=== PATIENT | male | born 1995 | race Caucasian/White ===

== ENCOUNTER 2019-12-14 21:26 | Emergency (ER) | payer BC, MEDICAID ==
[~2019-12-14] VITALS: Ht 182.9 cm; Wt 88.0 kg
[~2019-12-14 21:26] MED LIST: PANT-47 PO
[2019-12-14 21:33] VITALS: BP 154/94
[2019-12-14] MEDS ORDERED: ibuprofen tablet 400 MG TABLET PO ONE (23:40)
== END 2019-12-15 00:09 | disposition home or self-care (01) ==
LOC: ER 21:26
DX: M25.532 Pain in left wrist (principal); F12.90 Cannabis use, unspecified, uncomplicated; Z72.89 Other problems related to lifestyle; Z79.899 Other long term (current) drug therapy
CPT/HCPCS: 29125; 73110; 99283

== ENCOUNTER 2020-06-09 11:46 | Emergency (ER) | payer MEDICAID ==
[~2020-06-09] VITALS: Ht 185.4 cm; Wt 70.0 kg
[2020-06-09 12:25] VITALS: BP 135/82
== END 2020-06-09 14:25 | disposition home or self-care (01) ==
LOC: ER 11:46
DX: S93.491A Sprain of other ligament of right ankle, initial encounter (principal); F12.90 Cannabis use, unspecified, uncomplicated; Z72.89 Other problems related to lifestyle; Z98.890 Other specified postprocedural states; X58.XXXA Exposure to other specified factors, initial encounter; Y93.89 Activity, other specified; Y92.89 Other specified places as the place of occurrence of the external cause; Y99.8 Other external cause status
CPT/HCPCS: 29515; 73610; 99284

== ENCOUNTER 2022-11-11 20:59 | Emergency (ER) | payer MEDICAID ==
[~2022-11-11] VITALS: Ht 182.9 cm; Wt 71.8 kg
[2022-11-11 21:21] VITALS: BP 145/83
== END 2022-11-12 01:26 | disposition left against medical advice (07) ==
LOC: ER 21:00
DX: M79.602 Pain in left arm (principal); Z53.21 Procedure and treatment not carried out due to patient leaving prior to being seen by health care provider
CPT/HCPCS: 73130

== ENCOUNTER 2022-11-12 10:45 | Emergency (ER) | payer MEDICAID ==
[~2022-11-12] VITALS: Ht 182.9 cm; Wt 71.8 kg
[2022-11-12 11:23] VITALS: BP 134/88
[2022-11-12] MEDS ORDERED: ketorolac trometh inj. 60 MG/2 ML VIAL IM ONE (13:05)
[2022-11-12] MEDS ORDERED: ketorolac trometh. 30mg/ml inj. IM ONE (13:05)
== END 2022-11-12 13:29 | disposition home or self-care (01) ==
LOC: ER 10:46
DX: S60.222A Contusion of left hand, initial encounter (principal); F12.90 Cannabis use, unspecified, uncomplicated; Z72.89 Other problems related to lifestyle; Z79.899 Other long term (current) drug therapy; W23.0XXA Caught, crushed, jammed, or pinched between moving objects, initial encounter; Y93.89 Activity, other specified; Y92.89 Other specified places as the place of occurrence of the external cause; Y99.8 Other external cause status
CPT/HCPCS: 96372; 99283; J1885

== ENCOUNTER 2023-04-13 17:32 | Emergency (ER) | payer MEDICAID ==
[~2023-04-13] VITALS: Ht 182.9 cm; Wt 50.0 kg
[2023-04-13 17:42] VITALS: BP 128/86
[2023-04-13] MEDS ORDERED: ibuprofen tablet 400 MG TABLET PO ONE (18:20)
== END 2023-04-13 18:41 | disposition home or self-care (01) ==
LOC: ER 17:32
DX: S63.612A Unspecified sprain of right middle finger, initial encounter (principal); S63.614A Unspecified sprain of right ring finger, initial encounter; S63.616A Unspecified sprain of right little finger, initial encounter; F12.90 Cannabis use, unspecified, uncomplicated; Z72.89 Other problems related to lifestyle; Z79.899 Other long term (current) drug therapy; X50.1XXA Overexertion from prolonged static or awkward postures, initial encounter; Y93.54 Activity, bowling; Y92.89 Other specified places as the place of occurrence of the external cause; Y99.8 Other external cause status
CPT/HCPCS: 73130; 73140; 99284

== ENCOUNTER 2023-10-11 16:31 | Emergency (ER) | payer MEDICAID ==
[~2023-10-11] VITALS: Ht 182.9 cm; Wt 82.4 kg
[2023-10-11 16:33] VITALS: BP 175/100; PULSE 88; RESP 16; TEMP 98.3; O2SAT 99
[2023-10-11 17:10] LABS: BASOPHILS # (AUTO) 0.1 X10'3 (0-0.2); BASOPHILS % (AUTO) 0.8 % (0-1); EOSINOPHILS # (AUTO) 0.2 X10'3 (0-0.9); EOSINOPHILS % (AUTO) 1.8 % (0-6); HEMATOCRIT 45.5 % (42.0-52.0); HEMOGLOBIN 15.4 g/dl (14.0-17.9); LYMPHOCYTES # (AUTO) 2.6 X10'3 (1.1-4.8); LYMPHOCYTES % (AUTO) 28.9 % (21-51); MEAN CORPUSCULAR HGB CONC 33.9 g/dL (33.0-36.5); MEAN CORPUSCULAR VOLUME 91.5 FL (78-98); MEAN PLATELET VOLUME 8.1 FL (7.4-10.4); MONOCYTES # (AUTO) 0.5 X10'3 (0-0.9); MONOCYTES % (AUTO) 5.6 % (2-12); NEUTROPHILS # (AUTO) 5.6 X10'3 (1.8-7.7); NEUTROPHILS % (AUTO) 62.9 % (42-75); PLATELET COUNT 249 X10'3 (140-440); RED BLOOD COUNT 4.97 X10'6 (4.70-6.10); RED CELL DISTRIBUTION WIDTH 13.2 % (11.5-14.5); WHITE BLOOD COUNT 8.9 X10'3 (4.5-11.0)
[2023-10-11 17:38] LABS: ALANINE AMINOTRANSFERASE 84 U/L (12-78); ALBUMIN 4.5 G/DL (3.4-5.0); ALKALINE PHOSPHATASE 80 IU/L (46-116); ANION GAP 10 (8-16); ASPARTATE AMINO TRANSFERASE 52 U/L (10-37); BILIRUBIN,TOTAL 1.2 MG/DL (0.1-1.0); BLOOD UREA NITROGEN 10 MG/DL (7-18); BUN/CREATININE RATIO 12.2 (10.0-20.0); CALCIUM 9.5 MG/DL (8.5-10.1); CHLORIDE 100 MMOL/L (99-107); CREATININE 0.82 MG/DL (0.60-1.10); GLUCOSE 102 MG/DL (70-104); LIPASE 15 U/L (16-77); POTASSIUM 3.8 MMOL/L (3.5-5.1); SODIUM 137 MMOL/L (135-145); TOTAL CARBON DIOXIDE 27.2 MMOL/L (24-32); TOTAL PROTEIN 8.8 G/DL (6.4-8.2); eCRCL 149 ML/MIN; eGFR > 90 ML/MIN
[2023-10-11] MEDS ORDERED: ONDA8TAB13 PO (17:56)
== END 2023-10-11 18:02 | disposition home or self-care (01) ==
LOC: ER 16:31
DX: R11.2 Nausea with vomiting, unspecified (principal); R19.7 Diarrhea, unspecified; R10.32 Left lower quadrant pain; F12.90 Cannabis use, unspecified, uncomplicated; Z72.89 Other problems related to lifestyle; Z79.899 Other long term (current) drug therapy
CPT/HCPCS: 36415; 74176; 80053; 83690; 85025; 99284

== ENCOUNTER 2023-12-06 14:06 | Emergency (ER) | payer OTHER, MEDICAID ==
[~2023-12-06] VITALS: Ht 182.9 cm; Wt 77.3 kg
[~2023-12-06 14:06] MED LIST changes: +ONDA8TAB13 PO
[2023-12-06] MEDS ORDERED: ACET-3209 PO (14:38)
[2023-12-06] MEDS ORDERED: ONDA4TAB12 PO (14:38)
[2023-12-06 14:50] VITALS: BP 168/97; PULSE 82; RESP 16; TEMP 97.4; O2SAT 98
== END 2023-12-06 14:53 | disposition home or self-care (01) ==
LOC: ER 14:07
DX: S06.0X0A Concussion without loss of consciousness, initial encounter (principal); F12.90 Cannabis use, unspecified, uncomplicated; Z79.899 Other long term (current) drug therapy; X58.XXXA Exposure to other specified factors, initial encounter; Y93.89 Activity, other specified; Y92.89 Other specified places as the place of occurrence of the external cause; Y99.8 Other external cause status
CPT/HCPCS: 99283

== ENCOUNTER 2025-01-25 14:49 | Emergency (ER) | payer MEDICAID, OTHER ==
[~2025-01-25] VITALS: Ht 182.9 cm; Wt 88.0 kg
[~2025-01-25 14:49] MED LIST changes: +ONDA-243 PO; +ONDA-245 PO; -ONDA8TAB13 PO
[2025-01-25 15:15] VITALS: TEMP 98
[2025-01-25 15:52] LABS: BILIRUBIN,URINE NEGATIVE (Neg); CLARITY,URINE CLEAR (Clear); COLOR,URINE STRAW (Yellow); GLUCOSE, URINE NEGATIVE (Neg); KETONES,URINE 15 mg/dl (Neg); LEUKOCYTE ESTERASE ,URINE NEGATIVE (Neg); NITRITES, URINE NEGATIVE (Neg); OCCULT BLOOD,URINE NEGATIVE (Neg); PROTEIN,URINE NEGATIVE (Neg); UROBILINOGEN,URINE 0.2 E.U/dL (0.2-1.0)
[2025-01-25 15:53] LABS: UA COLLECTION TYPE CLN CATCH MIDSTREAM
[2025-01-25 15:54] LABS: BASOPHILS % (AUTO) 0.3 % (0-1); EOSINOPHILS % (AUTO) 0.1 % (0-6); HEMATOCRIT 42.3 % (42.0-52.0); HEMOGLOBIN 14.2 g/dl (14.0-17.9); LYMPHOCYTES # (AUTO) 1.6 X10'3 (1.1-4.8); LYMPHOCYTES % (AUTO) 12.4 % (21-51); MEAN CORPUSCULAR HGB CONC 33.5 g/dL (33.0-36.5); MEAN CORPUSCULAR VOLUME 92.7 FL (78-98); MEAN PLATELET VOLUME 7.8 FL (7.4-10.4); MONOCYTES % (AUTO) 7.6 % (2-12); NEUTROPHILS # (AUTO) 10.1 X10'3 (1.8-7.7); NEUTROPHILS % (AUTO) 79.6 % (42-75); PLATELET COUNT 228 X10'3 (140-440); RED BLOOD COUNT 4.56 X10'6 (4.70-6.10); RED CELL DISTRIBUTION WIDTH 12.8 % (11.5-14.5); WHITE BLOOD COUNT 12.7 X10'3 (4.5-11.0)
[2025-01-25 16:09] LABS: ALANINE AMINOTRANSFERASE 106 U/L (12-78); ALBUMIN 4.5 G/DL (3.4-5.0); ALBUMIN/GLOBULIN RATIO 1.3 (1.1-1.5); ALKALINE PHOSPHATASE 87 IU/L (46-116); ANION GAP 13 (8-16); ASPARTATE AMINO TRANSFERASE 99 U/L (10-37); BILIRUBIN,TOTAL 1.4 MG/DL (0.1-1.0); BLOOD UREA NITROGEN 5 MG/DL (7-18); BUN/CREATININE RATIO 6.4 (10.0-20.0); CALCIUM 9.8 MG/DL (8.5-10.1); CHLORIDE 99 MMOL/L (99-107); CREATININE 0.78 MG/DL (0.60-1.10); GLUCOSE 81 MG/DL (70-104); POTASSIUM 3.7 MMOL/L (3.5-5.1); SODIUM 138 MMOL/L (135-145); TOTAL CARBON DIOXIDE 25.7 MMOL/L (24-32); TOTAL PROTEIN 7.9 G/DL (6.4-8.2); eCRCL 155 ML/MIN; eGFR > 90 ML/MIN
[2025-01-25 16:10] LABS: CREATINE KINASE 427 U/L (39-308)
[2025-01-25 16:23] LABS: URINE AMPHETAMINE SCREEN NEGATIVE (Neg); URINE BARBITUATE SCREEN NEGATIVE (Neg); URINE BENZODIAZEPINES SCREEN NEGATIVE (Neg); URINE CANNABINOID SCREEN POSITIVE (Neg); URINE COCAINE SCREEN NEGATIVE (Neg); URINE METHADONE SCREEN NEGATIVE (Neg); URINE OPIATE SCREEN NEGATIVE (Neg); URINE PHENCYCLIDINE SCREEN NEGATIVE (Neg)
[2025-01-25 17:02] VITALS: BP 148/92; PULSE 94; RESP 16; O2SAT 99
== END 2025-01-25 17:23 | disposition home or self-care (01) ==
LOC: ER 14:49
DX: R55 Syncope and collapse (principal); R56.9 Unspecified convulsions; Z79.899 Other long term (current) drug therapy; F12.90 Cannabis use, unspecified, uncomplicated; Z72.89 Other problems related to lifestyle
CPT/HCPCS: 36415; 70450; 80053; 80305; 81003; 82550; 85025; 93005; 99284

== ENCOUNTER 2025-06-09 22:56 | Emergency (ER) | payer MEDICAID ==
[~2025-06-09] VITALS: Ht 182.9 cm; Wt 84.7 kg
[2025-06-09 23:31] LABS: MEAN PLATELET VOLUME 7.0 FL (7.4-10.4); RED CELL DISTRIBUTION WIDTH 13.2 % (11.5-14.5)
--- NOTE | 2025-06-09 23:31 | Physician Documentation ---
History of Present Illness ~ Chief Complaint: Suicidal Ideation Stated Complaint: RIGHT ARM LAC Time Seen by MD: 23:14 OK to notify your PCP?: Yes Primary Medical Doctor: DR BRIDGET PATEL Source: patient, RN/ HPI Patient is seen today with complaints of suicide attempt by cutting the volar aspect of his right forearm midshaft with a razor blade, causing a 3.5 cm laceration.. Patient states this happened just prior to arrival. Patient states he does still feel suicidal but is feeling a little better. He denies any chest pain or shortness of breath or abdominal pain or nausea, vomiting, diarrhea. Patient has no other concern or complaint at this time. Medication Reconciliation Allergies: Coded Allergies: No Known Allergies (Unverified , 12/06/23) Scheduled Ondansetron 8mg ODT (Ondansetron Odt), 1 TAB PO Q6H Pantoprazole Sodium (PROTONIX tablet), 1 TABLET PO DAILY Scheduled PRN ONDANSETRON ODT 4mg tablet (Ondansetron Odt), 1 TAB PO Q6H PRN PRN for kee sea/vomiting Past Medical History Past Medical History: No Pertinent History Past Surgical History: no surgical history Alcohol Use: Occasionally Drug Use: marijuana Lives In: Home Review of Systems Constitutional: Denies: chills, fever, weakness Eyes: Denies: pain, blurred vision ENT: Denies: ear pain, nose pain, throat pain, mouth pain Respiratory: Denies: cough, shortness of breath Cardiovascular: Denies: chest pain, palpitations Gastrointestinal: Denies: abdominal pain, nausea, vomiting Genitourinary: Denies: burning, dysuria Male Genitalia: Denies: penile discharge, testicular pain Neurological: Denies: headache, dizziness Musculoskeletal: Denies: pain, swelling Integumentary: Denies: rash, lesions Allergic/Immunologic: Denies: hives, itching Hematologic/Lymphatic: Denies: no symptoms reported Psychiatric: Denies: depression, anxiety Physical Exam Vital Signs: Temperature: 98.8, Source: Oral, Heart Rate: 92, Respiratory Rate: 16, BP: 150/99, Pulse Oximetry: 95, Weight: 84.700 Oxygen Flow Rate: 0 Physical Exam General: Awake and Alert, no acute distress. HEENT: Conjunctiva pink, Sclera clear, Mucus Membranes moist. Neck: Supple without masses and tenderness. Resp: Unlabored. Lungs clear to auscultation bilaterally. Heart: Regular Rate and rhythm, normal S1 and S2 without murmur, rub or gallop. Abdomen: Soft and non tender no organomegaly Extremities: No cyanosis,clubbing or edema. Skin: Patient on exam has 3.5 cm laceration of the volar aspect of the right forearm midshaft. There is minimal active bleeding. Procedures Laceration : Procedure Note Procedure note: 4 cc of 1% lidocaine without epinephrine was used to achieve local anesthesia of the 3-1/2 cm laceration to the volar aspect of the right forearm. Patient tolerated well. Wound was irrigated with normal saline and iodine. 5-0 Prolene suture using running suture was used to achieve closure. Patient tolerated well. Progress Results/Orders Results/Orders Orders - YENNIFER PEPPER PAC Urinalysis (06/09/25 23:13) Drug Screen, Urine (06/09/25 23:13) Med Rec (06/09/25 23:13) 1799.11 (06/09/25 23:13) Close Observation Level (06/09/25 23:13) Covid19 Binax Poc Result Entry (06/09/25 23:13) Substance Use Navigator (06/09/25 23:13) Regular Diet (06/10/25 Breakfast) Completed Orders - YENNIFER PEPPER PAC Cbc/Diff (06/09/25 23:13) Ethanol (06/09/25 23:13) TSH (06/09/25 23:13) BMP (06/09/25 23:13) Vital Signs 06/09/25 23:00 Temp 98.8 Pulse 92 Resp 16 B/P (MAP) 150/99 Pulse Ox 95 O2 Flow Rate 0 Laboratory Tests Test 06/09/25 23:20 White Blood Count 9.0 Red Blood Count 4.74 Hemoglobin 14.9 Hematocrit 43.6 Mean Corpuscular Volume 92.0 Mean Corpuscular Hemoglobin 31.5 H Mean Corpuscular Hemoglobin Concent 34.2 Red Cell Distribution Width 13.2 Platelet Count 268 Mean Platelet Volume 7.0 L Neutrophils (%) (Auto) 47.8 Lymphocytes (%) (Auto) 44.7 Monocytes (%) (Auto) 6.0 Eosinophils (%) (Auto) 0.9 Basophils (%) (Auto) 0.6 Neutrophils # (Auto) 4.3 Lymphocytes # (Auto) 4.0 Monocytes # (Auto) 0.5 Eosinophils # (Auto) 0.1 Basophils # (Auto) 0.1 CBC Comment Sodium Level 142 Potassium Level 3.5 Chloride Level 103 Carbon Dioxide Level 26.0 Anion Gap 13 Blood Urea Nitrogen 6 L Creatinine 0.77 Estimated GFR/1.73 m2 > 90 BUN/Creatinine Ratio 7.8 L Glucose Level 103 Calcium Level 8.5 Albumin 4.1 Thyroid Stimulating Hormone (TSH) 2.38 Chemistry Comments Ethyl Alcohol Level 376 H Medical Decision Making Findings Patient is seen today with complaints of suicide attempt by cutting the volar aspect of his right forearm midshaft with a razor blade, causing a 3.5 cm laceration.. Patient states this happened just prior to arrival. Patient states he does still feel suicidal but is feeling a little better. He denies any chest pain or shortness of breath or abdominal pain or nausea, vomiting, diarrhea. Patient has no other concern or complaint at this time. Patient did have laceration repaired via sutures by myself today. Patient tolerated well. Patient is medically cleared for psychiatric evaluation. Departure Disposition: 30 STILL A PATIENT Impression: Primary Impression: Suicide attempt Additional Impression: Laceration Condition: Improved Discharge Instructions: Suicidal Feelings: How to Help Yourself Additional Instructions: Transfer orders for [facility]: At this time there is no evidence of an emergent medical condition that would preclude (admission/transfer) to a psychiatric unit via [facility] protocol for further psychiatric, as well as medical evaluation and treatment. At this time I have no reason to believe that transfer via [facility] protocol would have serious medical compromise in the patient's health. Patient did have laceration repaired via sutures by myself today. Patient tolerated well. Patient is medically cleared for psychiatric evaluation. Referrals: NO PRIMARY CARE PROVIDER (PCP) Signature Scribe Signature: No scribe Attestation: No scribe YENNIFER PEPPER PAC Jun 09, 2025 23:31
[2025-06-09 23:57] LABS: CREATININE 0.77 MG/DL (0.60-1.10); ETHANOL 376 MG/DL (<10); TOTAL CARBON DIOXIDE 26.0 MMOL/L (24-32); eCRCL 155 ML/MIN; eGFR > 90 ML/MIN
[2025-06-10] MEDS ORDERED: NO HOME MEDS (00:14)
[2025-06-10 00:29] VITALS: BP 142/96; PULSE 63; TEMP 98.8; O2SAT 96
[2025-06-10 02:08] LABS: LEUKOCYTE ESTERASE ,URINE NEGATIVE (Neg); NITRITES, URINE NEGATIVE (Neg); OCCULT BLOOD,URINE NEGATIVE (Neg)
[2025-06-10 02:12] LABS: UA COLLECTION TYPE CLN CATCH MIDSTREAM
[2025-06-10 02:24] LABS: URINE AMPHETAMINE SCREEN NEGATIVE (Neg); URINE BARBITUATE SCREEN NEGATIVE (Neg); URINE BENZODIAZEPINES SCREEN NEGATIVE (Neg); URINE CANNABINOID SCREEN POSITIVE (Neg); URINE COCAINE SCREEN NEGATIVE (Neg); URINE METHADONE SCREEN NEGATIVE (Neg); URINE OPIATE SCREEN NEGATIVE (Neg); URINE PHENCYCLIDINE SCREEN NEGATIVE (Neg)
[2025-06-10 09:30] VITALS: RESP 12
[2025-06-10] MEDS: nicotine 14mg patch - 24hr TD ONE (10:49)
--- NOTE | 2025-06-10 13:38 | Physician Documentation ---
History of Present Illness ~ Chief Complaint: Suicidal Ideation Stated Complaint: RIGHT ARM LAC Primary Medical Doctor: DR BRIDGET PATEL Source: patient, RN/MD Mode of Arrival: POV HPI New chart opened for purposes of writing d/c instructions as initial chart note was signed fully by previous provider. Medication Reconciliation Allergies: Coded Allergies: No Known Allergies (Unverified , 12/06/23) Miscellaneous Medications Home Med List (No Home Medications), (Reported) Discontinued Medications ONDANSETRON ODT 4mg tablet (Ondansetron Odt), 1 TAB PO Q6H PRN PRN for nausea/vomiting Discontinued Reason: patient no longer taking Ondansetron 8mg ODT (Ondansetron Odt), 1 TAB PO Q6H Discontinued Reason: patient no longer taking Pantoprazole Sodium (PROTONIX tablet), 1 TABLET PO DAILY Discontinued Reason: patient no longer taking Past Medical History Past Medical History: No Pertinent History Past Surgical History: no surgical history Alcohol Use: Occasionally Drug Use: marijuana Lives In: Home Review of Systems ROS not obtained, this chart note for just for purposes of writing d/c instructions. Physical Exam Vital Signs: Temperature: 98.8, Source: Oral, Heart Rate: 63, Respiratory Rate: 12, BP: 142/96, Pulse Oximetry: 96, Weight: 84.700 Oxygen Flow Rate: 0 Physical Exam No physical exam. Cleared for discharge by mental health clinician, who reports patient was found to have no suicidal ideation. Progress Results/Orders Results/Orders Medications Received in ER Medications (Trade) Dose Ordered Sig/Sharon Route PRN Reason Start Time Stop Time Status Last Admin Dose Admin (Habitrol patch) 1 patch ONCE ONCE TD 06/10/25 10:35 06/10/25 10:36 DC 06/10/25 10:49 1 PATCH Vital Signs 06/09/25 06/10/25 06/10/25 06/10/25 23:00 00:07 00:29 00:38 Temp 98.8 98.8 Pulse 92 63 Resp 16 16 18 19 B/P (MAP) 150/99 142/96 (111) Pulse Ox 95 96 O2 Flow Rate 0 0 06/10/25 09:30 Resp 12 B/P (MAP) Laboratory Tests Test 06/09/25 23:20 06/09/25 23:58 06/10/25 01:40 White Blood Count 9.0 Red Blood Count 4.74 Hemoglobin 14.9 Hematocrit 43.6 Mean Corpuscular Volume 92.0 Mean Corpuscular Hemoglobin 31.5 H Mean Corpuscular Hemoglobin Concent 34.2 Red Cell Distribution Width 13.2 Platelet Count 268 Mean Platelet Volume 7.0 L Neutrophils (%) (Auto) 47.8 Lymphocytes (%) (Auto) 44.7 Monocytes (%) (Auto) 6.0 Eosinophils (%) (Auto) 0.9 Basophils (%) (Auto) 0.6 Neutrophils # (Auto) 4.3 Lymphocytes # (Auto) 4.0 Monocytes # (Auto) 0.5 Eosinophils # (Auto) 0.1 Basophils # (Auto) 0.1 CBC Comment Sodium Level 142 Potassium Level 3.5 Chloride Level 103 Carbon Dioxide Level 26.0 Anion Gap 13 Blood Urea Nitrogen 6 L Creatinine 0.77 Estimated GFR/1.73 m2 > 90 BUN/Creatinine Ratio 7.8 L Glucose Level 103 Calcium Level 8.5 Albumin 4.1 Thyroid Stimulating Hormone (TSH) 2.38 Chemistry Comments Ethyl Alcohol Level 376 H SARS-CoV-2 Antigen (Rapid) Negative Urine Specimen Description Cln catch midstream Urine Color Yellow Urine Clarity Clear Urine pH 6.0 Urine Specific [place] <=1.005 Urine Protein Negative Urine Glucose (UA) Negative Urine Ketones Negative Urine Occult Blood Negative Urine Nitrite Negative Urine Bilirubin Negative Urine Urobilinogen 0.2 Urine Leukocyte Esterase Negative Volume Urine Centrifuged 10 ml Urine Comment Urine Opiates Screen Negative Urine Methadone Screen Negative Urine Fentanyl Screen Negative Urine Barbiturates Screen Negative Urine Phencyclidine Screen Negative Urine Amphetamines Screen Negative Urine Benzodiazepines Screen Negative Urine Cocaine Screen Negative Urine Cannabinoids Screen Positive Drug Screen Comment Departure Time of Disposition: 13:35 Disposition: 01 HOME / SELF CARE / HOMELESS Impression: Primary Impression: Suicide attempt Additional Impression: Laceration Condition: Stable Discharge Instructions: Laceration Care, Adult, Suicidal Feelings: How to Help Yourself Additional Instructions: You should establish with a therapist and a psychiatrist. Please keep your laceration clean and dry. Plan to have sutures removed in about a week by your primary care or at an urgent care. Return if worse. Referrals: NO PRIMARY CARE PROVIDER (PCP) Education Educated: Patient Educated regarding: diagnosis, treatment, prognosis, need for follow up Signature Scribe Signature: x Attestation: The note accurately reflects work and decisions made by me.Dolly Figueroa NP 06/10/25 13:37 DOLLY CHAU NP Jun 10, 2025 13:38
== END 2025-06-10 13:56 | disposition home or self-care (01) ==
LOC: ER 22:56
DX: S41.111A Laceration without foreign body of right upper arm, initial encounter (principal); T14.91XA Suicide attempt, initial encounter; F12.90 Cannabis use, unspecified, uncomplicated; Z72.89 Other problems related to lifestyle; Z79.899 Other long term (current) drug therapy; Z20.822 Contact with and (suspected) exposure to COVID-19; X78.8XXA Intentional self-harm by other sharp object, initial encounter; Y93.89 Activity, other specified; Y92.89 Other specified places as the place of occurrence of the external cause; Y99.8 Other external cause status
CPT/HCPCS: 12002; 36415; 80048; 80305; 80320; 81003; 84443; 85025; 87811; 99284; 99285

== ENCOUNTER 2025-06-23 21:30 | Emergency (ER) | payer MEDICAID ==
[~2025-06-23] VITALS: Ht 182.9 cm; Wt 85.0 kg
[~2025-06-23 21:30] MED LIST changes: +NO HOME MEDS; -ONDA-243 PO; -ONDA-245 PO; -PANT-47 PO
[2025-06-23 21:51] VITALS: BP 142/76; PULSE 76; O2SAT 98
--- NOTE | 2025-06-23 22:22 | RADIOLOGY REPORT ---
CHEST RADIOGRAPH Indication: LEFT CHEST WALL PAIN S/P FALL Technique: 2 views Comparison: None FINDINGS: Lines and Tubes: None Lungs/Pleura: No focal consolidation, pleural effusion or pneumothorax. Cardiomediastinum: Unremarkable. Other: No evidence of displaced rib fracture or other acute osseous abnormality. IMPRESSION: 1. No acute or traumatic cardiopulmonary abnormality.
--- NOTE | 2025-06-23 23:03 | Physician Documentation ---
History of Present Illness ~ Chief Complaint: Chest Wall Pain Stated Complaint: RIB PAIN Time Seen by MD: 21:59 Primary Medical Doctor: DR BRIDGET PATEL [facility] This is a 30-year-old male that presents to the emergency department for evaluation of right-sided chest pain after falling from a ladder approximately a week ago patient denies any loss of consciousness striking his head at that time. Patient denies any head neck or back pain at this time. Patient reports that his ribs have continued to hurt on the lateral posterior right side hoping that he can have them evaluated. Patient reports that he had hemoptysis intermittently for a day or 2 after the initial injury but that has resolved since that time. No other symptoms reported at this time. Tetanus within 5 Years?: Yes Allergies: Coded Allergies: No Known Allergies (Unverified , 12/06/23) Active Prescriptions See Medication Reconciliation Form. Medication Reconciliation Miscellaneous Medications Home Med List (No Home Medications), (Reported) Past Medical History Past Medical History: No Pertinent History Past Surgical History: no surgical history Alcohol Use: Occasionally Drug Use: marijuana Lives In: Home Review of Systems ROS As stated above in the HPI, otherwise all systems are reviewed and negative. Physical Exam Vital Signs: Temperature: 98.0, Heart Rate: 76, Respiratory Rate: 18, BP: 142/76, Pulse Oximetry: 98, Weight: 85.000 Oxygen Flow Rate: 0 Physical Exam VITALS: Reviewed and as above. GENERAL: Alert, no apparent distress. HEENT: Normocephalic, atraumatic, PERRL, EOMI, dry mucosa, no erythema RESPIRATORY: Lungs clear, normal breath sounds, no respiratory distress. CHEST: No accessory muscle use, no retractions CV: Regular rate, rhythm, no edema, no murmur, No: JVD GI: Soft, non-tender, bowels sounds present, no rebound, guarding, or rigidity BACK: No CVA tenderness, or swelling MUSCULOSKELETAL No deformities, no edema, pain with examination and palpation to the right posterior thoracic region. SKIN: Warm and dry, no rash NEURO: Oriented x4, No motor or sensory deficit PSYCH: Normal mood and affect, no agitation Progress Results/Orders Results/Orders Orders - CRYS VERNON [employer] Chest,Two Views (06/23/25 22:09) Completed Orders - CRYS VERNON [employer] Chest,Two Views (06/23/25 22:09) Ketorolac Trometh 15mg/Ml Vial (Toradol (06/23/25 22:50) Acetaminophen 325mg Tablet (Tylenol Tabl (06/23/25 22:50) Vital Signs 06/23/25 21:51 Temp 98.0 Pulse 76 Resp 18 B/P (MAP) 142/76 Pulse Ox 98 O2 Flow Rate 0 Medical Decision Making Findings The Pt was found to negative for rib or chest wall fractures on XR. No concern concern for atelectasis or pneumonia secondary to injury at this time. The Pt is otherwise well appearing, hemodynamically stable, and shows no evidence of neurovascular injury or compartment syndrome. Patient was given a Toradol injection and Tylenol prior to discharge. Patient will follow up with his primary care provider. Patient will return to the emergency department with any worsening of his current symptoms or any additional concerning symptoms that we discussed here today i.e. increased pain shortness of breath fevers chills difficulty breathing increased congestion blood in his sputum or any other concerning symptoms. Differential Dx:Considerations: Include: Chest wall contusion, Flail chest, Myocardial contusion, Pneumothorax, Pulmonary contusion, Rib fracture, Renal contusion, Splenic fracture, Tension pneumothorax, Other Departure Disposition: 01 HOME / SELF CARE / HOMELESS Impression: Primary Impression: Chest wall pain Additional Impressions: Soft tissue injury of chest wall Traumatic injury Condition: Stable Discharge Instructions: Chest Wall Pain Additional Instructions: The Pt was found to negative for rib or chest wall fractures on XR. No concern concern for atelectasis or pneumonia secondary to injury at this time. The Pt is otherwise well appearing, hemodynamically stable, and shows no evidence of neurovascular injury or compartment syndrome. Patient was given a Toradol injection and Tylenol prior to discharge. Patient will follow up with his primary care provider. Patient will return to the emergency department with any worsening of his current symptoms or any additional concerning symptoms that we discussed here today i.e. increased pain shortness of breath fevers chills difficulty breathing increased congestion blood in his sputum or any other concerning symptoms. Tylenol ibuprofen for discomfort. You were given Toradol and Tylenol tonight prior to discharge. Please do not take any more Tylenol or ibuprofen until tomorrow. Please follow up with her primary care provider. Please return to the emergency department if you have any worsening or recurrent symptoms or any additional concerning symptoms that we discussed here today. Referrals: NO PRIMARY CARE PROVIDER (PCP) Education Educated: Patient Educated regarding: diagnosis, treatment, need for follow up Signature Scribe Signature: A Attestation: Scribed for Crys Vernon by KARELY Maya . 06/23/25 23:11 CRYS VERNON Jun 23, 2025 23:03
[2025-06-23 23:10] VITALS: RESP 16
[2025-06-23] MEDS: ketorolac trometh 15mg/ml vial 15 MG/ML ML IM ONE (23:10)
[2025-06-23 23:16] VITALS: TEMP 98
== END 2025-06-23 23:17 | disposition home or self-care (01) ==
LOC: ER 21:30
DX: S29.8XXA Other specified injuries of thorax, initial encounter (principal); R07.89 Other chest pain; F12.90 Cannabis use, unspecified, uncomplicated; Z72.89 Other problems related to lifestyle; W11.XXXA Fall on and from ladder, initial encounter; Y93.89 Activity, other specified; Y92.89 Other specified places as the place of occurrence of the external cause; Y99.8 Other external cause status
CPT/HCPCS: 71046; 96372; 99283; J1885

== ENCOUNTER 2025-09-08 22:50 | Emergency (ER) | payer MEDICAID ==
[~2025-09-08] VITALS: Ht 182.9 cm; Wt 87.0 kg
[2025-09-08 22:56] VITALS: BP 136/93; PULSE 98; RESP 15; O2SAT 98
--- NOTE | 2025-09-08 23:52 | RADIOLOGY REPORT ---
CLINICAL HISTORY: Puncture wound to foot RIGHT TECHNIQUE: 3 views of the left foot were obtained. COMPARISON: HAND, COMPLETE (3VW MIN) on DOS: 04/13/23, HAND, COMPLETE (3VW MIN) on DOS: 11/11/22, WRIST, COMPLETE (3VW MIN) on DOS: 12/14/19 FINDINGS: No acute fracture or dislocation is seen. No soft tissue abnormality is evident. There are no significant degenerative changes. IMPRESSION: NO ACUTE RADIOGRAPHIC ABNORMALITY OF THE LEFT FOOT.
[2025-09-09 00:40] VITALS: TEMP 98.6
--- NOTE | 2025-09-09 00:41 | Physician Documentation ---
History of Present Illness ~ Chief Complaint: Puncture Wound Stated Complaint: RIGHT FOOT S/P STEPPED ON NAIL Primary Medical Doctor: DR BRIDGET PATEL HPI This is a 30-year-old male who presents with concern for possible puncture wound to his right plantar foot after he stepped on a nail, patient reports the nail puncture through his shoe. Tetanus within 5 years?: Yes Medication Reconciliation Allergies: Coded Allergies: No Known Allergies (Unverified , 09/08/25) Miscellaneous Medications Home Med List (No Home Medications), (Reported) Past Medical History Past Medical History: No Pertinent History Past Surgical History: no surgical history Alcohol Use: Occasionally Drug Use: marijuana Lives In: Home Review of Systems ROS As stated above in the HPI, otherwise all systems are reviewed and negative. Physical Exam Vital Signs: Temperature: 98.6, Source: Temporal, Heart Rate: 98, Respiratory Rate: 15, BP: 136/93, Pulse Oximetry: 98, Weight: 87.000 Physical Exam VITALS: Reviewed and as above. GENERAL: Alert, nontoxic appearing, no apparent distress. RESPIRATORY: No increased work of breathing, no respiratory distress, speaking in full clear sentences Progress Progress Note 1243: I was informed by nursing staff that when patient was placed in room in his shoes were removed that no puncture wound was found on his foot, at this point patient decided to leave the emergency department prior to further evaluation. Results/Orders Results/Orders Orders - MOOK WILDE Foot, Complete (3vw Min) (09/08/25 23:35) Completed Orders - MOOK WILDE Foot, Complete (3vw Min) (09/08/25 23:35) Vital Signs 09/08/25 09/09/25 22:56 00:40 Temp 98.6 98.6 Pulse 98 Resp 15 B/P (MAP) 136/93 Pulse Ox 98 Medical Decision Making Additional information obtaine: N/A Findings MSE performed in triage and patient returned to ED lobby by nursing staff to await available ED room. Differential Dx:Considerations: Include: Abscess, Cellulitis, Other (Retained foreign body, puncture wound) Departure Disposition: 07 LEFT AWOL/ELOPED Impression: Primary Impression: Wound pain Referrals: NO PRIMARY CARE PROVIDER (PCP) Signature Scribe Signature: No scribe Attestation: The note accurately reflects work and decisions made by me.KARELY Castaneda 09/09/25 00:44 MOOK WILDE Sep 09, 2025 00:41
== END 2025-09-09 00:41 | disposition left against medical advice (07) ==
LOC: ER 22:50
DX: S91.331A Puncture wound without foreign body, right foot, initial encounter (principal); F12.90 Cannabis use, unspecified, uncomplicated; Z72.89 Other problems related to lifestyle; W45.0XXA Nail entering through skin, initial encounter; Y93.89 Activity, other specified; Y92.89 Other specified places as the place of occurrence of the external cause; Y99.8 Other external cause status
CPT/HCPCS: 73630; 99283